=== PATIENT | female | born 1990 | race Caucasian/White ===

== ENCOUNTER 2024-05-29 10:07 | Emergency (ER) | payer OTHER ==
[~2024-05-29] VITALS: Ht 170.2 cm; Wt 111.1 kg
[~2024-05-29 10:07] MED LIST: ALBU8.5H4; CITA10TA17; METF-441
[2024-05-29 10:55] LABS: BASOPHILS # (AUTO) 0.1 K/uL (0.0-0.2); BASOPHILS % (AUTO) 0.6 % (0.0-2.0); EOSINOPHILS # (AUTO) 0.8 K/uL (0.0-0.7); EOSINOPHILS % (AUTO) 7.6 % (0.0-6.0); HEMATOCRIT 26 % (33-45); HEMOGLOBIN 7.4 g/dL (11.5-14.8); LYMPHOCYTES # (AUTO) 4.2 K/uL (0.8-4.8); MEAN CORPUSCULAR HEMOGLOBIN 16 PG (26.0-33.0); MEAN CORPUSCULAR HGB CONC 28 g/dl (31.0-36.0); MEAN CORPUSCULAR VOLUME 54 fL (82-100); MONOCYTES # (AUTO) 0.7 K/uL (0.1-1.30); MONOCYTES % (AUTO) 6.8 % (2.0-12.0); NEUTROPHILS # (AUTO) 4.3 K/uL (1.8-8.9); PLATELET COUNT (AUTO) 502 K/uL (150-450); RED BLOOD CELL COUNT(AUTO) 4.76 MIL/uL (4.0-5.2); RED CELL DISTRIBUTION WIDTH 20.8 % (11.5-15.0); WHITE BLOOD COUNT (AUTO) 10.1 K/uL (4.3-11.0)
[2024-05-29 11:06] LABS: CALCIUM, SERUM 8.9 mg/dL (8.5-10.1); CREATININE 0.8 mg/dL (0.6-1.3); POTASSIUM 3.7 mmol/L (3.5-5.1)
[2024-05-29 11:07] VITALS: TEMP 97.9
[2024-05-29 11:14] LABS: INR 1.05 (0.91-1.10); PARTIAL THROMBOPLASTIN TIME 23.6 SEC (24.3-34.3); PROTHROMBIN TIME 11.1 SECS (9.2-11.1)
[2024-05-29] MEDS: IV NS 0.9% 1,000 ML BAG IV ONE (11:59)
[2024-05-29 12:26] LABS: APPEARANCE,URINE CLEAR (CLEAR); BILIRUBIN,URINE NEGATIVE (NEGATIVE); BLOOD, URINE 1+ Ery/uL (NEGATIVE); COLOR,URINE YELLOW (YELLOW); KETONES,URINE TRACE mg/dL (NEGATIVE); LEUKOCYTE ESTERASE ,URINE TRACE (NEGATIVE); NITRITE, URINE NEGATIVE (NEGATIVE); PROTEIN,URINE 1+ mg/dl (NEGATIVE); UGLUCOSE NEGATIVE (NEGATIVE); UROBILINOGEN,URINE 0.2 EU/dL (0.2)
[2024-05-29 12:27] LABS: PREGNANCY TEST URINE QUAL NEGATIVE (NEGATIVE)
[2024-05-29 13:04] LABS: ADD URINE CULTURE YES; BACTERIA,URINE 1+ /HPF (None Seen)
[2024-05-29 13:05] LABS: CALCIUM OXALATE CRYSTALS,UR Many /HPF (None Seen); MUCUS,URINE Few /LPF (None Seen)
[2024-05-29 13:54] VITALS: BP 135/75; O2SAT 98
== END 2024-05-29 13:35 | disposition home or self-care (01) ==
LOC: ER 10:16
DX: D50.9 Iron deficiency anemia, unspecified (principal); E11.9 Type 2 diabetes mellitus without complications; D75.839 Thrombocytosis, unspecified; R94.6 Abnormal results of thyroid function studies; J45.909 Unspecified asthma, uncomplicated; R10.2 Pelvic and perineal pain; R55 Syncope and collapse; F17.200 Nicotine dependence, unspecified, uncomplicated
CPT/HCPCS: 99285; 96360; 71045; 93005; 85025; 80048; 84703; 81001; 36415; 84443; 85730; 86850; 82962; J7030